=== PATIENT | female | born 1955 | race Caucasian/White ===

== ENCOUNTER 2024-07-14 02:36 | Observation (INO) | payer MEDICARE ==
[2024-07-14] MEDS ORDERED: DILTIAZEM 125 MG in SODIUM CHLORIDE 0.9% 100 ML IV SCH ×2 (03:15→05:22)
[2024-07-14] MEDS: DILTIAZEM 5 MG/ML 5 ML VIAL IVP STA ×2 (03:21→04:01)
[2024-07-14] MEDS: ASPIRIN 81 MG PO STA (03:38)
[2024-07-14 03:39] LABS: ALT 71 U/L (4-34); African American GFR (CKD) 90 (>60 ml/min/1.73 sqM); Albumin 4.4 g/dL (3.5-5.0); Anion Gap 9 mmol/L; Blood Urea Nitrogen 18 mg/dL (7-17); Calcium 9.9 mg/dL (8.4-10.2); Carbon Dioxide 24 mmol/L (22-30); Chloride 105 mmol/L (98-107); Glucose 163 mg/dL (74-99); Non-African American GFR(CKD) 78 (>60 ml/min/1.73 sqM); Partial Thromboplastin Time 23.9 sec (22.0-30.0); Prothrombin Time 10.8 sec (10.0-12.5); Sodium 138 mmol/L (137-145); Total Bilirubin 0.6 mg/dL (0.2-1.3); Total Protein 6.9 g/dL (6.3-8.2)
[2024-07-14] MEDS: DILTIAZEM 125 MG in SODIUM CHLORIDE 0.9% 100 ML IV SCH ×2 (03:39)
[2024-07-14] MEDS: SODIUM CHLORIDE 0.9% 1,000 ML IV STA (03:40)
[2024-07-14 03:43] LABS: Basophils # (A) 0.02 10*3/uL (0.00-0.10); Basophils % (A) 0.4 %; Eosinophils # (A) 0.16 10*3/uL (0.04-0.35); HCT 44.1 % (37.2-46.3); Lymphocytes # (A) 1.62 10*3/uL (0.90-5.00); MCH 29.6 pg (27.0-32.0); Mean Platelet Volume 10.8 fL (9.5-12.2); Monocytes % (A) 5.6 %; Neutrophils # (A) 3.28 10*3/uL (1.80-7.70); Neutrophils % (A) 60.6 %; Platelet Count 220 10*3/uL (140-440); RBC 5.07 10*6/uL (4.10-5.20); RDW 12.2 % (11.5-14.5)
[2024-07-14 03:46] LABS: AST 48 U/L (14-36); Alkaline Phosphatase 46 U/L (38-126); Magnesium 1.8 mg/dL (1.6-2.3); Potassium 4.1 mmol/L (3.5-5.1)
--- NOTE | 2024-07-14 05:12 | ED ---
General Adult HPI <Bouchra Osman - Last Filed: 07/14/24 16:45> - General Source: patient Mode of arrival: EMS Limitations: no limitations <Cathy Bentley - Last Filed: 07/17/24 10:32> - General Chief complaint: Arrhythmia/Palpitations Stated complaint: Chest Pain Time Seen by Provider: 07/14/24 02:51 - History of Present Illness Initial comments: 69-year-old female with past medical history significant for A-fib presents with palpitations. EKG upon arrival shows A-fib with RVR. Patient reports she is on flecainide, diltiazem and Eliquis. Patient reports her last episode was 7 to 8 weeks ago. Her piece jobber is Dr. Castro López located in [place], [place]. Patient reports she underwent ablation in April. Patient denies any history of [place] or strokes. Patient denies any history of diabetes, thyroid disease, hypertension. Patient denies any alcohol use, caffeine, or recreational drugs. Patient denies any fevers, chills, chest pain, shortness of breath, abdominal pain, urinary or bowel complaints. (Bouchra Osman) - Related Data Home Medications Medication Instructions Recorded Confirmed Apixaban [Eliquis] 5 mg PO BID 07/14/24 07/14/24 Calcium(Unknown Dose) 1 tab PO HS 07/14/24 07/14/24 Cetirizine HCl [Zyrtec] 10 mg PO HS 07/14/24 07/14/24 Cinnamon Bark(Unknown Dose) 1 tab PO DAILY 07/14/24 07/14/24 Esomeprazole Magnesium [NexIUM 20 mg PO DAILY 07/14/24 07/14/24 24Hr] L.acidoph,Paracasei, B.lactis 1 cap PO DAILY 07/14/24 07/14/24 [Probiotic] Multivitamins, Thera [Multivitamin 1 tab PO DAILY 07/14/24 07/14/24 (formulary)] Vitamin C(Unknown Dose) 1 tab PO DAILY 07/14/24 07/14/24 Previous Rx's Medication Instructions Recorded Diltiazem Cd [Cardizem CD] 180 mg PO DAILY #30 cap 07/15/24 Flecainide [Tambocor] 100 mg PO Q12HR 30 Days #120 tab 07/15/24 Allergies Allergy/AdvReac Type Severity Reaction Status Date / Time amoxicillin AdvReac Nausea & Verified 07/14/24 09:28 Vomiting & Diarrhea sulfamethoxazole AdvReac Nausea & Verified 07/14/24 09:28 [From Bactrim] Vomiting & Diarrhea trimethoprim [From Bactrim] AdvReac Nausea & Verified 07/14/24 09:28 Vomiting & Diarrhea Review of Systems ROS Other: All systems not noted in ROS Statement are negative. Constitutional: Denies: fever, chills Respiratory: Denies: cough, dyspnea Cardiovascular: Reports: palpitations Gastrointestinal: Denies: abdominal pain, nausea, vomiting, diarrhea Genitourinary: Denies: urgency, dysuria Musculoskeletal: Reports: back pain Skin: Denies: rash, lesions <Bouchra Osman - Last Filed: 07/14/24 16:45> ROS Other: All systems not noted in ROS Statement are negative. <EnglishCathy - Last Filed: 07/17/24 10:32> ROS Statement: Those systems with pertinent positive or pertinent negative responses have been documented in the HPI. Past Medical History Past Medical History: Atrial Fibrillation History of Any Multi-Drug Resistant Organisms: None Reported Past Surgical History: Ablation Past Psychological History: No Psychological Hx Reported Smoking Status: Never smoker Past Alcohol Use History: None Reported Past Drug Use History: None Reported <Cathy - Last Filed: 07/17/24 10:32> General Exam General appearance: alert, in no apparent distress Respiratory exam: Present: normal lung sounds bilaterally, wheezes. Absent: rales Cardiovascular Exam: Present: tachycardia, irregular rhythm GI/Abdominal exam: Present: soft. Absent: distended, tenderness Neurological exam: Present: alert, oriented X3 Psychiatric exam: Present: normal affect, normal mood <Bouchra Osman - Last Filed: 07/14/24 16:45> Limitations: no limitations <Cathy Bentley - Last Filed: 07/17/24 10:32> Course Vital Signs 07/14/24 07/14/24 07/14/24 02:45 03:46 04:02 Temperature 97.9 F Pulse Rate 85 138 H 122 H Respiratory 16 17 17 Rate Blood Pressure 125/83 138/81 132/80 O2 Sat by Pulse 96 96 95 Oximetry 07/14/24 05:32 Temperature Pulse Rate 112 H Respiratory 17 Rate Blood Pressure 131/93 O2 Sat by Pulse 95 Oximetry Medical Decision Making - Lab Data Result diagrams: 07/14/24 03:16 07/14/24 03:16 <Bouchra Osman - Last Filed: 07/14/24 16:45> - Lab Data Result diagrams: 07/14/24 03:16 07/14/24 03:16 <Cathy Bentley - Last Filed: 07/17/24 10:32> - Medical Decision Making Was pt. sent in by a medical professional or institution (, [facility], [employer], urgent care, hospital, or half-way...) When possible be specific @ -No Did you speak to anyone other than the patient for history (EMS, parent, family, police, friend...)? What history was obtained from this source @ -No Did you review nursing and triage notes (agree or disagree)? Why? @ -I reviewed and agree with nursing and triage notes Were old charts reviewed (outside hosp., previous admission, EMS record, old EKG, old radiological studies, urgent care reports/EKG's, half-way records)? Report findings @ -No old charts were reviewed Differential Diagnosis? @ -Chest pain, altered mental status, abdominal pain women, abdominal pain men, vaginal bleeding, weakness, fever, dyspnea, syncope, headache, dizziness, GI bleed, back pain, seizure, CVA, palpatations, mental health, musculoskeletal EKG interpreted by me (3pts min.). @ -Atrial fibrillation with rapid ventricular response, right bundle branch block, rate 156 bpm QT/QTc 292/380 ms, normal axis, no obvious ST elevations or depressions though assessment is limited by rate X-rays interpreted by me (1pt min.). @ -Small left and right pleural effusions CT interpreted by me (1pt min.). @ -None done U/S interpreted by me (1pt. min.). @ -None done What testing was considered but not performed or refused? (CT, X-rays, U/S, labs)? Why? @ -None What meds were considered but not given or refused? Why? @ -None Did you discuss the management of the patient with other professionals (professionals i.e. , [facility], [employer], lab, RT, psych nurse, director social welfare, supervisor type photography, teacher, mail officer, case aide)? Give summary @ -Case was discussed with the ED attending Dr. Bentley. Case was also discussed with [facility] hospitalist Dr. Fry who accepted the admission. Was smoking cessation discussed for >3mins.? @ -No Was critical care preformed (if so, how long)? @ -No Were there social determinants of health that impacted care today? How? (Homeles sness, low income, unemployed, alcoholism, drug addiction, transportation, low edu. Level, literacy, decrease access to med. care, shelter, rehab)? @ -No Was there de-escalation of care discussed even if they declined (Discuss DNR or withdrawal of care, Hospice)? DNR status @ -No What co-morbidities impacted this encounter? (DM, HTN, Smoking, COPD, CAD, Cancer, CVA, ARF, Chemo, Hep., AIDS, mental health diagnosis, sleep apnea, morbid obesity)? @ -None Was patient admitted / discharged? Hospital course, mention meds given and route, prescriptions, significant lab abnormalities, going to OR and other pertinent info. @ -Patient received fluid bolus, Cardizem drip and bolus. CBC was unremarkable. Coags were unremarkable. CMP was remarkable for mild transaminitis. Troponin was negative BNP was unremarkable. TSH was within normal limits. EKG as interpreted by me showed A-fib with RVR ventricular rate of 156 bpm, QTc of 386 ms, right bundle branch block. Chest x-ray as interpreted by me showed small pleural effusions bilaterally. Case was discussed with the ED attending physician Dr. Bentley. Case was discussed with [facility] hospitalist Dr. Reggie Valladares who accepted the admission. Cardiology was consulted. Undiagnosed new problem with uncertain prognosis? @ -No Drug Therapy requiring intensive monitoring for toxicity (Heparin, Nitro, Insulin, Cardizem)? @ -No Were any procedures done? @ -No Diagnosis/symptom? @ -A-fib with RVR Acute, or Chronic, or Acute on Chronic? @ -Acute Uncomplicated (without systemic symptoms) or Complicated (systemic symptoms)? @ -Default Side effects of treatment? @ -No Exacerbation, Progression, or Severe Exacerbation? @ -No Poses a threat to life or bodily function? How? (Chest pain, USA, FL, pneumonia, PE, COPD, DKA, ARF, appy, cholecystitis, CVA, Diverticulitis, Homicidal, Suicidal, threat to staff... and all critical care pts) @ -No (Bouchra Osman) I personally saw the patient and performed the critical portion of the service. I discussed the patient care with the resident physician. I directed management, care planning and final disposition of the patient. This includes, but not limited to, review of all lab work, radiological studies, EKG's, consultations, vital signs, and nursing notes. EKG interpreted by me (3pts min.) @Atrial fibrillation with rapid ventricular response, right bundle branch block, rate 156 bpm QT/QTc 292/380 ms, normal axis, no obvious ST elevations or depressions though assessment is limited by rate X-Rays interpreted by me (1 pt min.) @Personally reviewed chest x-ray, small left and right pleural effusions noted CT interpreted by me ( 1pt min.) @ [none] U/S interpreted by me (1 pt min.) @ [none] Critical care time of 35 minutes minutes excluding separately billable p rocedures was spent in conjunction with critical care activities provided by the Resident and Attending simultaneously. I was present during [no procedures] for all critical portions of the procedure and as immediately available to furnish service during the entire procedure. (Cathy Bentley) - Lab Data Lab Results 07/14/24 07/14/24 07/14/24 Range/Units 03:16 03:16 03:16 WBC 5.40 (4.50-10.00) 10*3/uL RBC 5.07 (4.10-5.20) 10*6/uL Hgb 15.0 (12.0-15.0) g/dL Hct 44.1 (37.2-46.3) % MCV 87.0 (80.0-97.0) fL MCH 29.6 (27.0-32.0) pg MCHC 34.0 (32.0-37.0) g/dL Plt Count 220 (140-440) 10*3/uL MPV 10.8 (9.5-12.2) fL Immature Gran % (Auto) 0.4 % Neutrophils % 60.6 % Lymphocytes % 30.0 % Monocytes % 5.6 % Eosinophils % 3.0 % Basophils % 0.4 % Immature Gran # 0.02 (0.00-0.04) 10*3/uL Neutrophils # 3.28 (1.80-7.70) 10*3/uL Lymphocytes # 1.62 (0.90-5.00) 10*3/uL Monocytes # 0.30 (0.20-1.00) 10*3/uL Eosinophils # 0.16 (0.04-0.35) 10*3/uL Basophils # 0.02 (0.00-0.10) 10*3/uL PT 10.8 (10.0-12.5) sec INR 1.0 (<1.2) APTT 23.9 (22.0-30.0) sec Sodium 138 (137-145) mmol/L Potassium 4.1 (3.5-5.1) mmol/L Chloride 105 (98-107) mmol/L Carbon Dioxide 24 (22-30) mmol/L Anion Gap 9 mmol/L BUN 18 H (7-17) mg/dL Creatinine 0.77 (0.52-1.04) mg/dL Est GFR (CKD-EPI)AfAm 90 (>60 ml/min/1.73 sqM) Est GFR (CKD-EPI)NonAf 78 (>60 ml/min/1.73 sqM) Glucose 163 H (74-99) mg/dL Calcium 9.9 (8.4-10.2) mg/dL Magnesium 1.8 (1.6-2.3) mg/dL Total Bilirubin 0.6 (0.2-1.3) mg/dL AST 48 H (14-36) U/L ALT 71 H (4-34) U/L Alkaline Phosphatase 46 (38-126) U/L Troponin I (0.000-0.034) ng/mL NT-Pro-B Natriuret Pep pg/mL Total Protein 6.9 (6.3-8.2) g/dL Albumin 4.4 (3.5-5.0) g/dL Triglycerides (0.00-149.00) mg/dL Cholesterol (0.00-200.00) mg/dL LDL Cholesterol, Calc (0.0-131.0) mg/dL VLDL Cholesterol, Calc (5.00-40.00) mg/dL HDL Cholesterol (40.00-60.00) mg/dL Cholesterol/HDL Ratio Ratio TSH 2.380 (0.465-4.680) mIU/L 07/14/24 07/14/24 07/14/24 Range/Units 03:16 03:16 03:16 WBC (4.50-10.00) 10*3/uL RBC (4.10-5.20) 10*6/uL Hgb (12.0-15.0) g/dL Hct (37.2-46.3) % MCV (80.0-97.0) fL MCH (27.0-32.0) pg MCHC (32.0-37.0) g/dL Plt Count (140-440) 10*3/uL MPV (9.5-12.2) fL Immature Gran % (Auto) % Neutrophils % % Lymphocytes % % Monocytes % % Eosinophils % % Basophils % % Immature Gran # (0.00-0.04) 10*3/uL Neutrophils # (1.80-7.70) 10*3/uL Lymphocytes # (0.90-5.00) 10*3/uL Monocytes # (0.20-1.00) 10*3/uL Eosinophils # (0.04-0.35) 10*3/uL Basophils # (0.00-0.10) 10*3/uL PT (10.0-12.5) sec INR (<1.2) APTT (22.0-30.0) sec Sodium (137-145) mmol/L Potassium (3.5-5.1) mmol/L Chloride (98-107) mmol/L Carbon Dioxide (22-30) mmol/L Anion Gap mmol/L BUN (7-17) mg/dL Creatinine (0.52-1.04) mg/dL Est GFR (CKD-EPI)AfAm (>60 ml/min/1.73 sqM) Est GFR (CKD-EPI)NonAf (>60 ml/min/1.73 sqM) Glucose (74-99) mg/dL Calcium (8.4-10.2) mg/dL Magnesium (1.6-2.3) mg/dL Total Bilirubin (0.2-1.3) mg/dL AST (14-36) U/L ALT (4-34) U/L Alkaline Phosphatase (38-126) U/L Troponin I <0.012 (0.000-0.034) ng/mL NT-Pro-B Natriuret Pep 109 pg/mL Total Protein (6.3-8.2) g/dL Albumin (3.5-5.0) g/dL Triglycerides 316.00 H (0.00-149.00) mg/dL Cholesterol 191.00 (0.00-200.00) mg/dL LDL Cholesterol, Calc 91.0 (0.0-131.0) mg/dL VLDL Cholesterol, Calc 63.20 H (5.00-40.00) mg/dL HDL Cholesterol 36.80 L (40.00-60.00) mg/dL Cholesterol/HDL Ratio 5.19 Ratio TSH (0.465-4.680) mIU/L Disposition Decision Date: 07/14/24 Decision Time: 05:00 <Bouchra Osman - Last Filed: 07/14/24 16:45> <Cathy Bentley - Last Filed: 07/17/24 10:32> Clinical Impression: Atrial fibrillation with RVR Disposition: ADMITTED IP TO THIS HOSP Condition: Stable
[2024-07-14] MEDS: SODIUM CHLORIDE 0.9% 1,000 ML IV SCH (06:11)
[2024-07-14] MEDS: PANTOPRAZOLE 40 MG TABLET PO SCH (06:11)
--- NOTE | 2024-07-14 06:41 | XR ---
Chest, 2 view. CLINICAL INDICATION: Female, 69 years old with history of dysrhythmia COMPARISON: None TECHNIQUE: PA and lateral views the chest are obtained. FINDINGS: The lungs are clear and there is no consolidative or interstitial opacity. There is no pleural effusion or pneumothorax. The heart, pulmonary vasculature, mediastinum and josselyn appear normal. The osseous structures are intact. IMPRESSION: No significant abnormality seen. No acute cardiopulmonary disease. [facility], , 07/14/2024 6:39 AM
[2024-07-14] MEDS: APIXABAN 5 MG TAB PO SCH (08:29)
[2024-07-14] MEDS: FLECAINIDE 50 MG TAB PO SCH ×2 (08:29→20:01)
[2024-07-14] MEDS: DILTIAZEM CD 120 MG CAP.ER.24H PO SCH (11:49)
[2024-07-14] MEDS: DILTIAZEM CD 180 MG CAP.ER.24H PO SCH (12:06)
[2024-07-14] MEDS: FLECAINIDE 50 MG TAB PO STA (12:06)
--- NOTE | 2024-07-14 12:43 | P.CRDCN ---
History of Present Illness Consult date: 07/14/24 Consult reason: atrial flutter, atrial fibrillation Chief complaint: a-fib History of present illness: History of present illness: Patient is a pleasant 69 year old female with significant past medical history of a-flutter and a-fib who presents for palpitations. She is from [place], [place] and follows with network program manager Dr. Castro López. She is currently visiting family in [facility]. She has had prior cardioversions. She has a-flutter ablation in Apr 2024 and is still awaiting a-fib ablation. She has had a few episodes of the a-fib requiring ER visit since ablation. No smoking, etoh, or drugs. She was resumed on cardizem and flecainide with breakthough a-fib post a-flutter ablation. EKG did show atrial fibrillation with RVR, 156 beats per minutes. Hemoglobin 15, potassium 4.1, creatinine 0.77, AST 48, ALT 71, troponin negative, TSH normal. She woke up this morning and just was not feeling well and her heart was racing. She was having some chest pain at that time. She is feeling a little better this morning. Heart rates do not remain controlled. REVIEW OF SYSTEMS: No fever or chills. No cough or expectoration. No diaphoresis. Patient denies headache, dizziness, blurred vision, double vision. Patient denies any stomach discomfort. No nausea, vomiting. No hematochezia. No hematemesis. Denies any black stools or blood in his stools. Denies dysuria or hematuria. No muscle weakness or numbness. No chest pain or pressure. PHYSICAL EXAMINATION: This is a 69 year-old female in no apparent distress at the time of my examination. HEENT: Head is atraumatic, normocephalic. Pupils are equal, round. Sclerae anicteric. Conjunctivae are clear. Mucous membranes of the mouth are moist. Neck is supple. There is no jugular venous distention. No carotid bruit is heard. CHEST EXAMINATION: Lungs are clear to auscultation. No chest wall tenderness is noted on palpation or with deep breathing. HEART EXAMINATION: Heart irregular rate and rhythm. S1, S2 heard. No murmurs, gallops or rub. ABDOMEN: Soft, nontender. Bowel sounds are heard. EXTREMITIES: 2+ peripheral pulses with no evidence of peripheral edema and no calf tenderness noted. NEUROLOGIC EXAMINATION: Patient is awake, alert and oriented x3. IMPRESSION AND PLAN: A-flutter, s/p ablation Apr 2024 A-fib, paroxsymal Palpitations Chest pain PLAN: Increase flecainide to 100mg BID. Will increase cardizem to 180mg po daily. Consider cardioversion tomorrow if she does not convert to sinus rhythm. She states she has not missed any doses of eliquis for past 30 days. If she does convert to sinus rhythm and is feeling well okay to discharge home from cardiology standpoint and follow-up with her network program manager. Otherwise n.p.o. after midnight for cardioversion. I am dictating on behalf of Dr. Win Del Toro's history/physical and assessm ent/plan. Past Medical History Past Medical History: Atrial Fibrillation History of Any Multi-Drug Resistant Organisms: None Reported Past Surgical History: Ablation Additional Past Surgical History / Comment(s): d&c 2023 Past Anesthesia/Blood Transfusion Reactions: Postoperative Nausea & Vomiting (PONV) Past Psychological History: No Psychological Hx Reported Smoking Status: Never smoker Past Alcohol Use History: None Reported Past Drug Use History: None Reported Medications and Allergies Home Medications Medication Instructions Recorded Confirmed Type Apixaban [Eliquis] 5 mg PO BID 07/14/24 07/14/24 History Calcium(Unknown Dose) 1 tab PO HS 07/14/24 07/14/24 History Cetirizine HCl [Zyrtec] 10 mg PO HS 07/14/24 07/14/24 History Cinnamon Bark(Unknown Dose) 1 tab PO DAILY 07/14/24 07/14/24 History Diltiazem Cd [Cardizem CD] 120 mg PO DAILY 07/14/24 07/14/24 History Esomeprazole Magnesium [NexIUM 20 mg PO DAILY 07/14/24 07/14/24 History 24Hr] Flecainide Acetate 50 mg PO BID 07/14/24 07/14/24 History L.acidoph,Paracasei, B.lactis 1 cap PO DAILY 07/14/24 07/14/24 History [Probiotic] Multivitamins, Thera [Multivitamin 1 tab PO DAILY 07/14/24 07/14/24 History (formulary)] Vitamin C(Unknown Dose) 1 tab PO DAILY 07/14/24 07/14/24 History Allergies Allergy/AdvReac Type Severity Reaction Status Date / Time amoxicillin AdvReac Nausea & Verified 07/14/24 09:28 Vomiting & Diarrhea sulfamethoxazole AdvReac Nausea & Verified 07/14/24 09:28 [From Bactrim] Vomiting & Diarrhea trimethoprim [From Bactrim] AdvReac Nausea & Verified 07/14/24 09:28 Vomiting & Diarrhea Physical Exam Vitals: Vital Signs Temp Pulse Pulse Resp BP BP Pulse Ox 07/14/24 08:30 97.7 F 96 18 114/66 96 07/14/24 05:49 97.4 F L 118 H 16 127/83 97 07/14/24 05:32 112 H 17 131/93 95 07/14/24 04:02 122 H 17 132/80 95 07/14/24 03:46 138 H 17 138/81 96 07/14/24 02:45 97.9 F 85 16 125/83 96 Intake and Output 07/13/24 07/14/24 07/14/24 22:59 06:59 14:59 Intake Total 21.832 Balance 21.832 Intake: Intake, IV Titration 21.832 Amount Diltiazem 125 mg In 10.916 Sodium Chloride 0.9% 100 ml @ 5 MG/HR 5 mls/hr IV .Q24H [facility] Rx#:[id number] Diltiazem 125 mg In 10.916 Sodium Chloride 0.9% 100 ml @ 5 MG/HR 5 mls/hr IV .Q24H [facility] Rx#:[id number] Other: # Voids 1 Weight 83.915 kg Results 07/14/24 03:16 07/14/24 03:16 Cardiac Enzymes 07/14/24 07/14/24 07/14/24 Range/Units 03:16 03:16 07:25 AST 48 H (14-36) U/L Troponin I <0.012 0.013 (0.000-0.034) ng/mL Coagulation 07/14/24 Range/Units 03:16 PT 10.8 (10.0-12.5) sec APTT 23.9 (22.0-30.0) sec CBC 07/14/24 Range/Units 03:16 WBC 5.40 (4.50-10.00) 10*3/uL RBC 5.07 (4.10-5.20) 10*6/uL Hgb 15.0 (12.0-15.0) g/dL Hct 44.1 (37.2-46.3) % Plt Count 220 (140-440) 10*3/uL Comprehensive Metabolic Panel 07/14/24 Range/Units 03:16 Sodium 138 (137-145) mmol/L Potassium 4.1 (3.5-5.1) mmol/L Chloride 105 (98-107) mmol/L Carbon Dioxide 24 (22-30) mmol/L BUN 18 H (7-17) mg/dL Creatinine 0.77 (0.52-1.04) mg/dL Glucose 163 H (74-99) mg/dL Calcium 9.9 (8.4-10.2) mg/dL AST 48 H (14-36) U/L ALT 71 H (4-34) U/L Alkaline Phosphatase 46 (38-126) U/L Total Protein 6.9 (6.3-8.2) g/dL Albumin 4.4 (3.5-5.0) g/dL Current Medications Generic Name Dose Route Start Last Admin Trade Name Freq PRN Reason Stop Dose Admin Apixaban 5 mg 07/14/24 09:00 07/14/24 08:29 Apixaban 5 Mg Tab PO 5 mg BID KIKO Administration Protocol Diltiazem HCl 120 mg 07/14/24 09:00 Diltiazem Cd 120 Mg Cap.Er.24h PO DAILY KIKO Flecainide Acetate 50 mg 07/14/24 09:00 07/14/24 08:29 Flecainide 50 Mg Tab PO 50 mg DAILY KIKO Administration Diltiazem HCl 125 mg/ Sodium 125 mls @ 5 mls/hr 07/14/24 05:30 07/14/24 05:26 Chloride IV 10 mg/hr .Q24H KIKO 10 mls/hr Titration Protocol 5 MG/HR Sodium Chloride 1,000 mls @ 70 mls/hr 07/14/24 06:00 07/14/24 06:11 Saline 0.9% IV 70 mls/hr .[id number] KIKO Administration Pantoprazole Sodium 40 mg 07/14/24 07:30 07/14/24 06:11 Pantoprazole 40 Mg Tablet PO 40 mg [id number] [facility] Administration Intake and Output 07/13/24 07/14/24 07/14/24 22:59 06:59 14:59 Intake Total 21.832 Balance 21.832 Intake: Intake, IV Titration 21.832 Amount Diltiazem 125 mg In 10.916 Sodium Chloride 0.9% 100 ml @ 5 MG/HR 5 mls/hr IV .Q24H [facility] Rx#:[id number] Diltiazem 125 mg In 10.916 Sodium Chloride 0.9% 100 ml @ 5 MG/HR 5 mls/hr IV .Q24H [facility] Rx#:[id number] Other: # Voids 1 Weight 83.915 kg 07/14/24 03:16 07/14/24 03:16
--- NOTE | 2024-07-14 13:45 | P.HPIM ---
History of Present Illness H&P Date: 07/14/24 History of present illness: 69-year-old female with past medical history significant for atrial flutter status post ablation in April 2024, follows EP in [facility], was visiting family in [place], started to have palpitations. Patient had ablation in April, had few episodes of A-fib with RVR following ablation, still waiting for A-fib ablation in October 2024. Patient reported that she woke up this morning, was not feeling well and felt like her heart was racing, also had some chest pain, some shortness of breath. EKG in the ER showed A-fib with RVR of 156 bpm. CBC and CMP was mostly unremarkable. Troponin negative. proBNP 109. TSH 2.380. Assessment and plan: A-fib with RVR: Atrial flutter status post ablation April 2024: Palpitation:- Chest pain: Presented with palpitations, EKG showed A-fib with RVR with heart rate in 150s. Cardiology consulted Home med include Eliquis, flecainide, Cardizem. Continue Eliquis Cardiology recommended increase flecainide to 100 mg twice daily, increase Cardizem to 180 mg daily, plan for potential cardioversion tomorrow if remained in A-fib. DVT prophylaxis Anticoagulated Monitor vital signs and labs Labs and medication were reviewed. Continue same treatment. Further recommendations as per clinical course of the patient PHYSICAL EXAMINATION: GENERAL: The patient is A&O x3, NAD HEENT: EOMI, Sclerae anicteric, Moist Mucous membranes Neck: Supple, Non tender, No JVD PULMONARY: Equal breath souds B/L, No wheezing, No crackles. CARDIOVASCULAR: S1, S2 present. No murmurs, rubs, or gallops. ABDOMEN: Soft, nontender, nondistended, normoactive bowel sounds. No guarding or rebound tenderness. MUSCULOSKELETAL: No edema, No cyanosis. No clubbing. Normal ROM. Intact peripheral pulses. NEUROLOGICAL: CN 2-12 grossly intact. No FND REVIEW OF SYSTEMS: CONSTITUTIONAL: No fever, no malaise, no fatigue. HEENT: No recent visual problems or hearing problems. Denied any sore throat. CARDIOVASCULAR: No chest pain, orthopnea, PND, no palpitations, no syncope. PULMONARY: No shortness of breath, no cough, no hemoptysis. GASTROINTESTINAL: No diarrhea, no nausea, no vomiting, no abdominal pain. NEUROLOGICAL: No headaches, no weakness, no numbness. HEMATOLOGICAL: Denies any bleeding or petechiae. GENITOURINARY: Denies any burning micturition, frequency, or urgency. MUSCULOSKELETAL/RHEUMATOLOGICAL: Denies any joint pain, swelling, or any muscle pain. ENDOCRINE: Denies any polyuria or polydipsia. The rest of the 14-point review of systems is negative. Dictation was produced using [employer] software. please excuse any grammatical, word or spelling errors. Past Medical History Past Medical History: Atrial Fibrillation History of Any Multi-Drug Resistant Organisms: None Reported Past Surgical History: Ablation Additional Past Surgical History / Comment(s): d&c 2023 Past Anesthesia/Blood Transfusion Reactions: Postoperative Nausea & Vomiting (PONV) Past Psychological History: No Psychological Hx Reported Smoking Status: Never smoker Past Alcohol Use History: None Reported Past Drug Use History: None Reported Medications and Allergies Home Medications Medication Instructions Recorded Confirmed Type Apixaban [Eliquis] 5 mg PO BID 07/14/24 07/14/24 History Calcium(Unknown Dose) 1 tab PO HS 07/14/24 07/14/24 History Cetirizine HCl [Zyrtec] 10 mg PO HS 07/14/24 07/14/24 History Cinnamon Bark(Unknown Dose) 1 tab PO DAILY 07/14/24 07/14/24 History Diltiazem Cd [Cardizem CD] 120 mg PO DAILY 07/14/24 07/14/24 History Esomeprazole Magnesium [NexIUM 20 mg PO DAILY 07/14/24 07/14/24 History 24Hr] Flecainide Acetate 50 mg PO BID 07/14/24 07/14/24 History L.acidoph,Paracasei, B.lactis 1 cap PO DAILY 07/14/24 07/14/24 History [Probiotic] Multivitamins, Thera [Multivitamin 1 tab PO DAILY 07/14/24 07/14/24 History (formulary)] Vitamin C(Unknown Dose) 1 tab PO DAILY 07/14/24 07/14/24 History Allergies Allergy/AdvReac Type Severity Reaction Status Date / Time amoxicillin AdvReac Nausea & Verified 07/14/24 09:28 Vomiting & Diarrhea sulfamethoxazole AdvReac Nausea & Verified 07/14/24 09:28 [From Bactrim] Vomiting & Diarrhea trimethoprim [From Bactrim] AdvReac Nausea & Verified 07/14/24 09:28 Vomiting & Diarrhea Physical Exam Vitals: Vital Signs Temp Pulse Pulse Resp BP BP Pulse Ox 07/14/24 12:00 124 H 18 124/86 96 07/14/24 08:30 97.7 F 110 H 18 114/66 96 07/14/24 05:49 97.4 F L 118 H 16 127/83 97 07/14/24 05:32 112 H 17 131/93 95 07/14/24 04:02 122 H 17 132/80 95 07/14/24 03:46 138 H 17 138/81 96 07/14/24 02:45 97.9 F 85 16 125/83 96 Intake and Output 07/13/24 07/14/24 07/14/24 22:59 06:59 14:59 Intake Total 21.832 Balance 21.832 Intake: Intake, IV Titration 21.832 Amount Diltiazem 125 mg In 10.916 Sodium Chloride 0.9% 100 ml @ 5 MG/HR 5 mls/hr IV .Q24H [facility] Rx#:[id number] Diltiazem 125 mg In 10.916 Sodium Chloride 0.9% 100 ml @ 5 MG/HR 5 mls/hr IV .Q24H [facility] Rx#:[id number] Other: # Voids 1 Weight 83.915 kg Results CBC & Chem 7: 07/14/24 03:16 07/14/24 03:16 Labs: Abnormal Lab Results - Last 24 Hours (Table) 07/14/24 Range/Units 03:16 BUN 18 H (7-17) mg/dL Glucose 163 H (74-99) mg/dL AST 48 H (14-36) U/L ALT 71 H (4-34) U/L Thrombosis Risk Factor Assmnt - Choose All That Apply Each Risk Factor Represents 2 Points: Age 61-74 years Thrombosis Risk Factor Assessment Total Risk Factor Score: 2 Thrombosis Risk Factor Assessment Level: Low Risk
[2024-07-14] MEDS ORDERED: FLECAINIDE 50 MG TAB PO SCH (21:00)
[2024-07-15 08:29] VITALS: PULSE 84; RESP 16; TEMP 97.6
[2024-07-15] MEDS ORDERED: DILTIAZEM CD 180 MG CAP.ER.24H PO SCH (09:00)
[2024-07-15 09:11] LABS: Chol/HDL Ratio 5.19 Ratio
[2024-07-15 11:28] VITALS: BP 143/84
--- NOTE | 2024-07-15 14:44 | P.PN ---
Subjective Progress Note Date: 07/15/24 History of present illness: Patient is a pleasant 69 year old female with significant past medical history of a-flutter and a-fib who presents for palpitations. She is from [place], [place] and follows with meteorologist liaison Dr. Castro López. She is currently visiting family in [facility]. She has had prior cardioversions. She has a-flutter ablation in Apr 2024 and is still awaiting a-fib ablation. She has had a few episodes of the a-fib requiring ER visit since ablation. No smoking, etoh, or drugs. She was resumed on cardizem and flecainide with breakthough a-fib post a-flutter ablation. EKG did show atrial fibrillation with RVR, 156 beats per minutes. Hemoglobin 15, potassium 4.1, creatinine 0.77, AST 48, ALT 71, troponin negative, TSH normal. She woke up this morning and just was not feeling well and her heart was racing. She was having some chest pain at that time. She is feeling a little better this morning. Heart rates do not remain controlled. 07/15 Patient seen and examined. Yesterday, flecainide and Cardizem were increased. Patient converted from atrial fibrillation to sinus rhythm last evening. She remains in atrial fibrillation this morning. Patient plans to follow-up with her meteorologist liaison in [place]. Vital signs are stable. PHYSICAL EXAMINATION: This is a 69 year-old female in no apparent distress at the time of my examination. HEENT: Head is atraumatic, normocephalic. Pupils are equal, round. Sclerae anicteric. Conjunctivae are clear. Mucous membranes of the mouth are moist. Neck is supple. There is no jugular venous distention. No carotid bruit is heard. CHEST EXAMINATION: Lungs are clear to auscultation. No chest wall tenderness is noted on palpation or with deep breathing. HEART EXAMINATION: Heart there is regular rate and rhythm. S1, S2 heard. No murmurs, gallops or rub. ABDOMEN: Soft, nontender. Bowel sounds are heard. EXTREMITIES: 2+ peripheral pulses with no evidence of peripheral edema and no calf tenderness noted. NEUROLOGIC EXAMINATION: Patient is awake, alert and oriented x3. IMPRESSION AND PLAN: A-flutter, s/p ablation Apr 2024 A-fib, paroxsymal, converted to sinus rhythm Palpitations Chest pain PLAN: Continue increased flecainide 100mg BID and cardizem 180mg po daily. Patient is cleared for discharge home from cardiology standpoint and follow-up with her meteorologist liaison. Nurse practitioner note has been reviewed, I agree with documented findings and plan of care. Patient was seen and examined. Objective - Vital Signs Vital signs: Vital Signs Temp 97.6 F 07/15/24 08:28 Pulse 84 07/15/24 08:30 Resp 16 07/15/24 08:30 BP 113/69 07/15/24 08:28 Pulse Ox 97 07/15/24 08:28 FiO2 Intake & Output 07/14/24 07/15/24 07/15/24 18:59 06:59 18:59 Intake Total 107.917 24.5 140 Output Total 4 Balance 107.917 20.5 140 Weight 89.7 kg Intake: IV 20 Invasive Line 1 10 Invasive Line 2 10 Intake, IV Titration 107.917 24.5 Amount Diltiazem 125 mg In 107.917 24.5 Sodium Chloride 0.9% 100 ml @ 5 MG/HR 5 mls/hr IV .Q24H [facility] Rx#:[id number] Oral 120 Output: Urine 4 Other: Voiding Method Toilet Toilet # Voids 1 - Labs CBC & Chem 7: 07/14/24 03:16 07/14/24 03:16 Labs: Abnormal Lab Results - Last 24 Hours (Table) 07/14/24 Range/Units 03:16 Triglycerides 316.00 H (0.00-149.00) mg/dL VLDL Cholesterol, Calc 63.20 H (5.00-40.00) mg/dL HDL Cholesterol 36.80 L (40.00-60.00) mg/dL
--- NOTE | 2024-07-18 12:44 | P.DS ---
Providers Date of admission: 07/14/24 05:15 Expected date of discharge: 07/15/24 Attending physician: Toy Fry MD Consults: 07/14/24 05:13 Consult Physician Urgent Consulting Provider: [facility] Consult Reason/Comments: atrial fibrillation Do you want consulting provider notified?: Yes, Notify in am Primary care physician: Physician Nonstaff Hospital Course: Final diagnosis A-fib with RVR: Currently rate controlled Atrial flutter status post ablation April 2024 Chest pain: Ruled out ACS per cardiology Obesity with a BMI of 31.0 GI prophylaxis DVT prophylaxis Full code Discharge disposition Patient is being discharged in a stable condition with guarded prognosis to home. Patient will follow-up with her primary care provider out of [place] in the outpatient setting upon discharge. Patient is to continue with current medications and outpatient follow-up with cardiology as scheduled. Total time taken is greater than 35 minutes. Hospital course History of present illness: 69-year-old female with past medical history significant for atrial flutter status post ablation in April 2024, follows EP in [facility], was visiting family in , started to have palpitations. Patient had ablation in April, had few episodes of A-fib with RVR following ablation, still waiting for A-fib ablation in October 2024. Patient reported that she woke up this morning, was not feeling well and felt like her heart was racing, also had some chest pain, some shortness of breath. EKG in the ER showed A-fib with RVR of 156 bpm. CBC and CMP was mostly unremarkable. Troponin negative. proBNP 109. TSH 2.380. 07/15/2024 Patient is seen in follow-up this morning with no acute overnight events noted continued on telemetry monitoring and has been cleared by cardiology for outpatient follow-up with her primary gummed tape press operator out of [facility]. Patient has from traveling with her back home and will be going today. Please refer to cardiology note for further HPI. Patient has persistent ongoing home today currently no reports of chest pain, shortness of breath, or palpitations. Patient is afebrile. No reports of nausea or vomiting and patient is tolerating diet. Patient will be discharged home today. PHYSICAL EXAMINATION: GENERAL: The patient is A&O x3, NAD HEENT: EOMI, Sclerae anicteric, Moist Mucous membranes Neck: Supple, Non tender, No JVD PULMONARY: Equal breath souds B/L, No wheezing, No crackles. CARDIOVASCULAR: S1, S2 present. No murmurs, rubs, or gallops. ABDOMEN: Soft, nontender, nondistended, normoactive bowel sounds. No guarding or rebound tenderness. MUSCULOSKELETAL: No edema, No cyanosis. No clubbing. Normal ROM. Intact peripheral pulses. NEUROLOGICAL: CN 2-12 grossly intact. No FND Please refer to medication reconciliation sheet for a list of medications. The impression and plan of care has been dictated by Adrienne Abreu, Nurse Practitioner as directed. Dr. Kavon MD I have performed a history and examination and MDM of this patient, discussed the same with the dictator, and agree with the dictator's assessment and plan as written ,documented as a scribe. Based on total visit time, I have performed more than 50% of the visit. Patient Condition at Discharge: Stable Plan - Discharge Summary Discharge Rx Participant: Yes New Discharge Prescriptions: New Flecainide [Tambocor] 100 mg PO Q12HR 30 Days #120 tab Diltiazem Cd [Cardizem CD] 180 mg PO DAILY #30 cap Continue L.acidoph,Paracasei, B.lactis [Probiotic] 1 cap PO DAILY Esomeprazole Magnesium [NexIUM 24Hr] 20 mg PO DAILY Apixaban [Eliquis] 5 mg PO BID Cinnamon Bark(Unknown Dose) 1 tab PO DAILY Calcium(Unknown Dose) 1 tab PO HS Vitamin C(Unknown Dose) 1 tab PO DAILY Multivitamins, Thera [Multivitamin (formulary)] 1 tab PO DAILY Cetirizine HCl [Zyrtec] 10 mg PO HS Discontinued Flecainide Acetate 50 mg PO BID Diltiazem Cd [Cardizem CD] 120 mg PO DAILY Discharge Medication List Apixaban [Eliquis] 5 mg PO BID 07/14/24 [History] Calcium(Unknown Dose) 1 tab PO HS 07/14/24 [History] Cetirizine HCl [Zyrtec] 10 mg PO HS 07/14/24 [History] Cinnamon Bark(Unknown Dose) 1 tab PO DAILY 07/14/24 [History] Esomeprazole Magnesium [NexIUM 24Hr] 20 mg PO DAILY 07/14/24 [History] L.acidoph,Paracasei, B.lactis [Probiotic] 1 cap PO DAILY 07/14/24 [History] Multivitamins, Thera [Multivitamin (formulary)] 1 tab PO DAILY 07/14/24 [History] Vitamin C(Unknown Dose) 1 tab PO DAILY 07/14/24 [History] Diltiazem Cd [Cardizem CD] 180 mg PO DAILY #30 cap 07/15/24 [Rx] Flecainide [Tambocor] 100 mg PO Q12HR 30 Days #120 tab 07/15/24 [Rx] Follow up Appointment(s)/Referral(s): Nonstaff,Physician [Primary Care Provider] - 1-2 days Patient Instructions/Handouts: A-fib (Atrial Fibrillation) (DC) Activity/Diet/Wound Care/Special Instructions: Activity limited until follow-up Follow-up with primary care provider this week Follow-up with your gummed tape press operator this week Continue taking medications as prescribed Discharge Disposition: HOME SELF-CARE
== END 2024-07-15 16:07 | disposition home or self-care (01) ==
LOC: EC 02:36 → 3SCARD 05:15
PROVIDERS: ADMIT Internal Medicine; ATTEND Internal Medicine
DX: I48.0 Paroxysmal atrial fibrillation (principal); I48.92 Unspecified atrial flutter; E66.9 Obesity, unspecified; Z68.31 Body mass index [BMI] 31.0-31.9, adult; Z79.01 Long term (current) use of anticoagulants; Z79.899 Other long term (current) drug therapy; Z88.0 Allergy status to penicillin; Z88.2 Allergy status to sulfonamides
CPT/HCPCS: 96366 ×3; 96376; 96365; 99285; 36415; 93005; 83880; 80061; 80053; 84443; 83735; 84484; 85025; 85610; 85730; 71046; G0378 ×2